=== PATIENT | female | born 2000 | race Caucasian/White ===

== ENCOUNTER 2019-03-25 18:18 | Emergency (ER) | payer MEDICAID ==
[~2019-03-25] VITALS: Ht 165.1 cm; Wt 65.0 kg
[2019-03-25] MEDS ORDERED: IV NORMAL SALINE 1,000ML 1,000 ML IV SCH (18:35)
[2019-03-25] MEDS ORDERED: ONDANSETRON PF 4 MG/2 ML VIAL. IVP ONE (18:45)
[2019-03-25 19:00] LABS: BASO % 0 % (0-3); EOS # 0.1 x10^3/uL (0.0-0.7); EOS % 1 % (0-3); HEMATOCRIT 44.2 % (36.0-47.0); HEMOGLOBIN 14.7 g/dL (12.0-15.5); LYMPH # 0.7 x10^3/uL (1.0-4.8); LYMPH % 7 % (24-48); MEAN CORPUSCULAR HEMOGLOBIN 31 pg (25-35); MEAN CORPUSCULAR HGB CONC 33 g/dL (31-37); MEAN CORPUSCULAR VOLUME 92 fL (79-100); MONO # 0.4 x10^3/uL (0.0-1.1); MONO % 4 % (0-9); NEUT # 8.7 x10^3uL (1.8-7.7); NEUT % 88 % (31-73); PLATELET COUNT 248 x10^3/uL (140-400); RED BLOOD COUNT 4.81 x10^6/uL (3.50-5.40); RED CELL DISTRIBUTION WIDTH 13.3 % (11.5-14.5); WHITE BLOOD COUNT 9.9 x10^3/uL (4.0-11.0)
[2019-03-25 19:10] LABS: CALCIUM 8.6 mg/dL (8.5-10.1); CREATININE 0.8 mg/dL (0.6-1.0); GFR 91.4; POTASSIUM 3.9 mmol/L (3.5-5.1)
[2019-03-25 19:15] LABS: ALBUMIN 3.6 g/dL (3.4-5.0); ALBUMIN/GLOBULIN RATIO 0.9 (1.0-1.7); TOTAL BILIRUBIN 0.3 mg/dL (0.2-1.0); TOTAL PROTEIN 7.5 g/dL (6.4-8.2)
[2019-03-25 20:21] LABS: BACTERIA,URINE FEW /HPF (0-FEW); BILIRUBIN,URINE NEG (NEG); CLARITY,URINE CLOUDY; COLOR,URINE YELLOW; GLUCOSE,URINE NEG (NEG); NITRITE,URINE NEG (NEG); SQUAMOUS EPITHELIAL CELL,UR FEW /LPF; UROBILINOGEN,URINE 0.2 mg/dL (0.2 mg/dL)
[2019-03-25] MEDS ORDERED: IOHEXOL 300 MG/ML 75 ML VIAL. IV ONE (20:30)
--- NOTE | 2019-03-25 20:47 | RAD ---
Examination: CT ABD PELV W/ IV CONTRST ONLY History: Upper abdominal pain which is worse after eating Comparison/Correlation: None Findings: Axial images of the abdomen and pelvis were obtained following IV contrast. Sagittal and coronal reformatted images were provided. Visualized lung bases are clear. Liver, spleen, pancreas, adrenal glands, and kidneys are normal. Circumferential wall thickening of a few of the left upper quadrant jejunal loops of bowel which may represent contraction or spasm. Gallbladder is unremarkable. No enlarged abdominal or pelvic lymph nodes. Inferior vena cava is mostly decompressed. Appendix is unremarkable. No bowel obstruction. Abdominal aorta is widely patent. Celiac and superior mesenteric arteries are unremarkable. No stenosis suggested on this nonarteriographic exam. Retroflexed uterus noted. No ascites. Minimal pelvic free fluid is present. No inflammatory changes identified about the cecum but evaluation may be limited due to minimal mesenteric fat. Bony structures are unremarkable. Impression: Minimal pelvic free fluid is physiologic in appearance. No suspicious process seen. PQRS Compliance Statement: One or more of the following individualized dose reduction techniques were utilized for this examination: 1. Automated exposure control 2. Adjustment of the mA and/or kV according to patient size 3. Use of iterative reconstruction technique Electronically signed by: Osvaldo Brown MD (03/25/2019 8:44 PM) [facility]
[2019-03-25] MEDS ORDERED: RANI-376 PO (20:56)
[2019-03-25] MEDS ORDERED: ONDA4TAB12 PO (20:56)
[2019-03-25] MEDS ORDERED: HYDR-3165 PO (20:56)
--- NOTE | 2019-03-25 20:56 | PHYS DOC ---
Past History Past Medical History: No Pertinent History Past Surgical History: No Surgical History Alcohol Use: None Adult General Chief Complaint Chief Complaint: ABDOMINAL PAIN HPI HPI Patient is a 18-year-old female who presents with complaint of mid abdominal pain that started about a week ago and has gotten worse over the last couple of days. Patient rates pain at about a 6 out of 10. She states that she has had some nausea but no vomiting. She denies any diarrhea. Patient states that symptoms are worsened when she eats. She states that she has no problems when she drinks. She states that nothing improves the symptoms. She does indicate that she has had decreased appetite today.[] Review of Systems Review of Systems Constitutional: Denies fever or chills [] Respiratory: Denies cough or shortness of breath [] Cardiovascular: No additional information not addressed in HPI [] GI: Complains of abdominal pain with nausea. Denies vomiting or diarrhea [] Integument: Denies rash or skin lesions [] Neurologic: Denies headache, focal weakness or sensory changes [] All other systems were reviewed and found to be within normal limits, except as documented in this note. Current Medications Current Medications Current Medications Medications (Trade) Dose Ordered Sig/Piyush Start Time Stop Time Status Last Admin Dose Admin Fentanyl Citrate (Fentanyl 2ml Vial) 25 mcg PRN Q15MIN PRN 03/25/19 18:45 03/26/19 18:44 03/25/19 18:52 25 MCG Iohexol (Omnipaque 300 Mg/ml) 75 ml 1X ONCE 03/25/19 20:30 03/25/19 20:31 DC 03/25/19 20:33 75 ML Ondansetron HCl (Zofran) 4 mg 1X ONCE 03/25/19 18:45 03/25/19 18:46 DC 03/25/19 18:45 4 MG Sodium Chloride 1,000 ml @ 1,000 mls/hr Q1H 03/25/19 18:35 03/25/19 19:34 DC 03/25/19 18:35 1,000 MLS/HR Allergies Allergies Allergies Coded Allergies Type Severity Reaction Last Updated Verified No Known Drug Allergies 03/25/19 No Physical Exam Physical Exam Constitutional: Well developed, well nourished, no acute distress, non-toxic appearance. [] HENT: Normocephalic, atraumatic, bilateral external ears normal, oropharynx moist, no oral exudates, nose normal. [] Eyes: PERRLA, EOMI, conjunctiva normal, no discharge. [] Neck: Normal range of motion, no tenderness, supple, no stridor. [] Cardiovascular: Regular rate and rhythm[] Lungs & Thorax: Bilateral breath sounds clear to auscultation [] Abdomen: Bowel sounds normal, soft, with periumbilical and lower abdominal tenderness. [] Skin: Warm, dry, no erythema, no rash. [] Extremities: No tenderness, no cyanosis, no clubbing, ROM intact, no edema. [] Neurologic: Alert and oriented X 3, no focal deficits noted. [] Current Patient Data Vital Signs Vital Signs Date Time Temp Pulse Resp B/P (MAP) Pulse Ox O2 Delivery O2 Flow Rate FiO2 03/25/19 19:59 112 16 124/61 (82) 98 Room Air 03/25/19 18:27 97.9 Lab Results Laboratory Tests Test 03/25/19 18:45 03/25/19 19:38 03/25/19 19:45 White Blood Count 9.9 x10^3/uL (4.0-11.0) Red Blood Count 4.81 x10^6/uL (3.50-5.40) Hemoglobin 14.7 g/dL (12.0-15.5) Hematocrit 44.2 % (36.0-47.0) Mean Corpuscular Volume 92 fL (79-100) Mean Corpuscular Hemoglobin 31 pg (25-35) Mean Corpuscular Hemoglobin Concent 33 g/dL (31-37) Red Cell Distribution Width 13.3 % (11.5-14.5) Platelet Count 248 x10^3/uL (140-400) Neutrophils (%) (Auto) 88 % (31-73) H Lymphocytes (%) (Auto) 7 % (24-48) L Monocytes (%) (Auto) 4 % (0-9) Eosinophils (%) (Auto) 1 % (0-3) Basophils (%) (Auto) 0 % (0-3) Neutrophils # (Auto) 8.7 x10^3uL (1.8-7.7) H Lymphocytes # (Auto) 0.7 x10^3/uL (1.0-4.8) L Monocytes # (Auto) 0.4 x10^3/uL (0.0-1.1) Eosinophils # (Auto) 0.1 x10^3/uL (0.0-0.7) Basophils # (Auto) 0.0 x10^3/uL (0.0-0.2) Sodium Level 142 mmol/L (136-145) Potassium Level 3.9 mmol/L (3.5-5.1) Chloride Level 104 mmol/L (98-107) Carbon Dioxide Level 25 mmol/L (21-32) Anion Gap 13 (6-14) Blood Urea Nitrogen 13 mg/dL (7-20) Creatinine 0.8 mg/dL (0.6-1.0) Estimated GFR (Cockcroft-Gault) 91.4 BUN/Creatinine Ratio 16 (6-20) Glucose Level 90 mg/dL (70-99) Calcium Level 8.6 mg/dL (8.5-10.1) Total Bilirubin 0.3 mg/dL (0.2-1.0) Aspartate Amino Transferase (AST) 16 U/L (15-37) Alanine Aminotransferase (ALT) 19 U/L (14-59) Alkaline Phosphatase 45 U/L (46-116) L Total Protein 7.5 g/dL (6.4-8.2) Albumin 3.6 g/dL (3.4-5.0) Albumin/Globulin Ratio 0.9 (1.0-1.7) L Urine Collection Type Unknown Urine Color Yellow Urine Clarity Cloudy Urine pH 6.0 Urine Specific [place] >=1.030 Urine Protein 100 mg/dl (NEG-TRACE) Urine Glucose (UA) Neg mg/dL (NEG) Urine Ketones (Stick) 80 mg/dL (NEG) Urine Blood Large (NEG) Urine Nitrite Neg (NEG) Urine Bilirubin Neg (NEG) Urine Urobilinogen Dipstick 0.2 mg/dL (0.2 mg/dL) Urine Leukocyte Esterase Neg (NEG) Urine RBC 1-2 /HPF (0-2) Urine WBC 5-10 /HPF (0-4) Urine Squamous Epithelial Cells Few /LPF Urine Bacteria Few /HPF (0-FEW) Urine Mucus Mod /LPF POC Urine HCG, Qualitative hcg negative (Negative) EKG EKG [] Radiology/Procedures Radiology/Procedures [] Impressions: REASON: periumbilical abd pain PROCEDURE: CT ABD PELV W/ IV CONTRST ONLY Examination: CT ABD PELV W/ IV CONTRST ONLY History: Upper abdominal pain which is worse after eating Comparison/Correlation: None Findings: Axial images of the abdomen and pelvis were obtained following IV contrast. Sagittal and coronal reformatted images were provided. Visualized lung bases are clear. Liver, spleen, pancreas, adrenal glands, and kidneys are normal. Circumferential wall thickening of a few of the left upper quadrant jejunal loops of bowel which may represent contraction or spasm. Gallbladder is unremarkable. No enlarged abdominal or pelvic lymph nodes. Inferior vena cava is mostly decompressed. Appendix is unremarkable. No bowel obstruction. Abdominal aorta is widely patent. Celiac and superior mesenteric arteries are unremarkable. No stenosis suggested on this nonarteriographic exam. Retroflexed uterus noted. No ascites. Minimal pelvic free fluid is present. No inflammatory changes identified about the cecum but evaluation may be limited due to minimal mesenteric fat. Bony structures are unremarkable. Impression: Minimal pelvic free fluid is physiologic in appearance. No suspicious process seen. PQRS Compliance Statement: One or more of the following individualized dose reduction techniques were utilized for this examination: 1. Automated exposure control 2. Adjustment of the mA and/or kV according to patient size 3. Use of iterative reconstruction technique Electronically signed by: Osvaldo Mccall MD (03/25/2019 8:44 PM) [facility] DICTATED AND SIGNED BY: OSVALDO MCCALL MD DATE: 03/25/192043 CC: SRINI SMITH Jr. DO; PCP,NO ~ Course & Med Decision Making Course & Med Decision Making Pertinent Labs and Imaging studies reviewed. (See chart for details) [] Dragon Disclaimer Dragon Disclaimer This electronic medical record was generated, in whole or in part, using a voice recognition dictation system. Departure Departure: Impression: Primary Impression: Generalized abdominal pain Disposition: HOME, SELF-CARE Condition: STABLE Referrals: PCP,ANDRA (PCP) Patient Instructions: Abdominal Pain Scripts Ranitidine Hcl (ZANTAC) 150 Mg Tablet 1 TAB PO BID for abdominal pain for 15 Days, #30 TAB 0 Refills Prov: SRINI SMITH Jr. DO 03/25/19 Ondansetron (ONDANSETRON ODT) 4 Mg Tab.rapdis 1 TAB PO PRN Q6-8HRS PRN for NAUSEA, #12 TAB Prov: SRINI SMITH Jr. DO 03/25/19 Hydrocodone Bit/Acetaminophen (NORCO 5-325 TABLET) 1 Each Tablet 1 TAB PO PRN Q6HRS PRN for PAIN, #12 TAB 0 Refills Prov: SRINI SMITH Jr. DO 03/25/19 SRINI SMITH Jr. DO Mar 25, 2019 20:56
[2019-03-25 21:03] VITALS: BP 122/65
== END 2019-03-25 21:02 | disposition home or self-care (01) ==
LOC: ER 18:18
DX: R10.84 Generalized abdominal pain (principal); R10.33 Periumbilical pain; R10.30 Lower abdominal pain, unspecified; R11.0 Nausea
CPT/HCPCS: 36415; 74177; 80053; 81001; 81025; 85025; 87086; 96374; 96375; 99285; J2405; J3010; Q9967; J7030